=== PATIENT | male | born 1980 | race Caucasian/White ===

== ENCOUNTER 2021-05-10 13:55 | Emergency (ER) | payer OTHER ==
[2021-05-10 14:04] VITALS: BP 129/82; PULSE 70; TEMP 99.2; BMI 21.1
== END 2021-05-10 15:14 | disposition home or self-care (01) ==
LOC: FER 13:55
PROC: 0HQ1XZZ Repair Face Skin, External Approach (ICD-10-PCS; principal; 2021-05-10)
DX: S01.111A Laceration without foreign body of right eyelid and periocular area, initial encounter (principal); V87.7XXA Person injured in collision between other specified motor vehicles (traffic), initial encounter
CPT/HCPCS: 99282-25

== ENCOUNTER 2021-05-15 17:14 | Emergency (ER) | payer OTHER ==
[2021-05-15 17:38] VITALS: BP 117/83; PULSE 62; TEMP 99; BMI 20.9
== END 2021-05-15 17:38 | disposition home or self-care (01) ==
LOC: FER 17:14
DX: S01.81XA Laceration without foreign body of other part of head, initial encounter (principal); Y99.9 Unspecified external cause status; Z48.02 Encounter for removal of sutures
CPT/HCPCS: 99281-25